=== PATIENT | female | born 1945 | race African-American/Black ===

== ENCOUNTER 2017-02-12 18:10 | Inpatient (IN) | payer OTHER ==
[~2017-02-12] VITALS: Ht 162.6 cm; Wt 54.5 kg
[~2017-02-12 18:10] MED LIST: AMLO10TA2 PO; CYCL5TAB PO; LISI40TA4 PO; LORA0.5T PO
--- NOTE | 2017-02-12 18:16 | NUR ---
PATIENT BIB [facility] D/T [facility]NC[facility]. PATIENT STATING SHE WAS SITTING WITH FRIEND AND "SHE PASSED OUT". A/OX 4. NO COMPLAINTS OF PAIN. MD AT BEDSIDE. WILL MONITOR UNTIL FURTHER ORDERS.
[2017-02-12] MEDS ORDERED: IV NS 0.9% 1,000 ML BAG IV ONE (18:30)
[2017-02-12] MEDS ORDERED: MECLIZINE HCL 25 MG TABLET PO ONE (18:30)
[2017-02-12] MEDS ORDERED: ONDANSETRON HCL/PF - ER 4 MG/2 ML VIAL IV ONE (18:30)
[2017-02-12 18:31] LABS: BASOPHILS # (AUTO) 0.1 /CMM (0.0-0.2); BASOPHILS % (AUTO) 0.8 % (0.0-2.0); EOSINOPHILS # (AUTO) 0.2 /CMM (0.0-0.7); EOSINOPHILS % (AUTO) 2.2 % (0.0-6.0); HEMATOCRIT 34 % (33-45); HEMOGLOBIN 11.5 g/dL (11.5-14.8); LYMPHOCYTES # (AUTO) 2.8 /CMM (0.8-4.8); LYMPHOCYTES % (AUTO) 38.4 % (20.0-44.0); MEAN CORPUSCULAR HEMOGLOBIN 30 PG (26.0-33.0); MEAN CORPUSCULAR HGB CONC 35 g/dl (31.0-36.0); MEAN CORPUSCULAR VOLUME 87 fL (82-100); MONOCYTES # (AUTO) 0.5 /CMM (0.1-1.30); MONOCYTES % (AUTO) 7.5 % (2.0-12.0); NEUTROPHILS # (AUTO) 3.7 /CMM (1.8-8.9); NEUTROPHILS % (AUTO) 51.1 % (43.0-81.0); PLATELET COUNT (AUTO) 333 /CMM (150-450); RDW COEFFICIENT OF VARIATION 12.9 (11.5-15.0); RED BLOOD CELL COUNT(AUTO) 3.86 MIL/uL (4.0-5.2); WHITE BLOOD COUNT (AUTO) 7.3 K/uL (4.3-11.0)
[2017-02-12] MEDS ORDERED: IV SET PRIMARY PUMP SET 1 EA INFUS.SET MC ONE ×2 (18:34→21:25)
[2017-02-12] MEDS ORDERED: ONDANSETRON HCL/PF 4 MG/2 ML VIAL ONE (18:34)
[2017-02-12] MEDS ORDERED: IV NS 0.9% 1,000 ML ONE (18:34)
[2017-02-12] MEDS ORDERED: MECLIZINE HCL 25 MG TABLET ONE (18:34)
--- NOTE | 2017-02-12 18:40 | NUR ---
patient medicated per MD orders.
[2017-02-12 18:47] LABS: CALCIUM, SERUM 8.5 mg/dL (8.5-10.1); CARBON DIOXIDE 28 mmol/L (21-32); CHLORIDE 105 mmol/L (98-107); CREATININE 1.2 mg/dL (0.6-1.3); GLUCOSE 135 mg/dL (74-106); POTASSIUM 3.5 mmol/L (3.5-5.1); SODIUM SERUM 137 mmol/L (136-145); UREA NITROGEN, BLOOD 22 mg/dL (7-18)
[2017-02-12 18:50] LABS: PROTHROMBIN TIME 10.4 SECS (9.5-12.7)
[2017-02-12 18:53] LABS: ALANINE AMINOTRANSFERASE 18 U/L (12-78); ALBUMIN 3.6 g/dL (3.4-5.0); ALKALINE PHOSPHATASE 67 U/L (46-116); ASPARTATE AMINOTRANSFERASE 19 U/L (15-37); BILIRUBIN,DIRECT 0.1 mg/dL (0.0-0.2); BILIRUBIN,TOTAL 0.4 mg/dL (0.2-1.0); TOTAL PROTEIN, SERUM 6.9 g/dL (6.4-8.2)
[2017-02-12 18:55] LABS: TROPONIN I < 0.017 ng/mL (0.00-0.056)
--- NOTE | 2017-02-12 19:09 | NUR ---
patient taken to ct scan. remains stable
--- NOTE | 2017-02-12 19:20 | NUR ---
REPORT REC'D FROM MAXWELL KIRKLAND FOR [facility].
--- NOTE | 2017-02-12 19:36 | NUR ---
BLOOD SUGAR CHECKED, READING 164
--- NOTE | 2017-02-12 19:37 | NUR ---
ORTHOSTATIC BP'S TAKEN. NO COMPLICATIONS NOTED.
--- NOTE | 2017-02-12 20:03 | NUR ---
PT'S FRIEND LEFT THE BEDSIDE AND CAN BE REACHED VIA CELL PHONE IF PT NEEDS TO BE PICKED UP.
--- NOTE | 2017-02-12 20:03 | NUR ---
PT TOLERATED PO WATER WELL.
--- NOTE | 2017-02-12 20:09 | NUR ---
CALLED [facility] CONFERENCE INTERPRETER DOCTOR WAS PAGED.
--- NOTE | 2017-02-12 20:25 | NUR ---
PT APPEARS TO BE RESTING COMFORTABLY VSS.
--- NOTE | 2017-02-12 20:48 | NUR ---
CALLED [facility] TUTOR DOCTOR WAS PAGED.
[2017-02-12 21:00] VITALS: BP 127/78
--- NOTE | 2017-02-12 21:00 | NUR ---
RN NOTES ADMITTED A 71 YEARS OLD, FEMALE PT FROM ER WITH PRIMARY DIAGNOSIS OF DIZZINESS UNDER DR AVILA. PT ALERT AND ORIENTED X4, DENIES CHEST PAIN, SOB AND ANY DISCOMFORT AT THIS TIME. VITAL SIGNS STABLE, AFEBRILE. ATTACHED TO TELE MONITOR WHICH READS SINUS RHYTHM WITH HEART RATE OF 68. SKIN AND BODY ASSESSMENT DONE, SKIN CLEAR AND INTACT. IV ACCESS ON LEFT FOREARM PATENT AND INTACT AND STARTED PT ON NS AT 75 MLS/HR. PT IS AMBULATORY WITH STEADY GAIT. KEPT COMFORTABLE AND ATTENDED. ALL ORDERS NOTED AND CARRIED OUT. WILL CONTINUE TO MONITOR PT.
[2017-02-12] MEDS ORDERED: IV NS 0.9% 1,000 ML IV PRN (21:09)
[2017-02-12] MEDS ORDERED: MAGNESIUM HYDROXIDE 30 ML UDC PO PRN (21:30)
[2017-02-12] MEDS ORDERED: ENOXAPARIN SODIUM 40 MG/0.4 ML DISP.SYRIN SQ SCH (21:30)
[2017-02-12] MEDS ORDERED: Z GUARD REMEDY 2 OZ OINT TP PRN (21:30)
[2017-02-12] MEDS ORDERED: ONDANSETRON HCL/PF 4 MG/2 ML VIAL IVP PRN (21:30)
[2017-02-12] MEDS ORDERED: MAG HYDROX/AL HYDROX/SIMETH 30 ML UDC PO PRN (21:30)
[2017-02-12] MEDS ORDERED: HYDROCODONE/APAP 5/325MG 1 EACH TABLET PO PRN (21:30)
[2017-02-12] MEDS ORDERED: ENOXAPARIN SODIUM 40 MG/0.4 ML DISP.SYRIN SQ ONE (21:54)
[2017-02-13] VITALS: BP 130/74
[2017-02-13 04:00] VITALS: BP_SYST 120; BP_DIAS 33; BP_DIAS 63
[2017-02-13] MEDS ORDERED: ACETAMINOPHEN 325 MG TABLET ONE (04:01)
[2017-02-13] MEDS: ACETAMINOPHEN 325 MG TABLET PO PRN ×2 (04:07→11:44)
--- NOTE | 2017-02-13 04:07 | NUR ---
RN NOTES PT COMPLAINS OF TOOTH ACHE, TYLENOL 650 MG TAB GIVEN PO AND TOLERATED WELL. WILL CONTINUE TO MONITOR.
--- NOTE | 2017-02-13 06:49 | NUR ---
RN NOTES PT AWAKE, NO SOB, NOT IN DISTRESS, ON ROOM AIR AND TOLERATED WELL. VITAL SIGNS STABLE, AFEBRILE. NO EPISODE OF NAUSEA AND VOMITING NOTED. KEPT PAIN AT TOLERABLE LEVEL . DENIES DIZZINESS AND ANY DISCOMFORT AT THIS TIME. ASSISTED TO THE BATHROOM, NOTED WITH STEADY GAIT. ALL DUE MEDS GIVEN. KEPT COMFORTABLE AND ATTENDED. WILL ENDORSE TO MORNING RN FOR CONTINUITY OF CARE.
[2017-02-13 07:07] LABS: BASOPHILS % (AUTO) 0.2 % (0.0-2.0); EOSINOPHILS # (AUTO) 0.2 /CMM (0.0-0.7); EOSINOPHILS % (AUTO) 2.4 % (0.0-6.0); HEMATOCRIT 32 % (33-45); HEMOGLOBIN 10.6 g/dL (11.5-14.8); LYMPHOCYTES # (AUTO) 2.5 /CMM (0.8-4.8); LYMPHOCYTES % (AUTO) 32.2 % (20.0-44.0); MEAN CORPUSCULAR HEMOGLOBIN 30 PG (26.0-33.0); MEAN CORPUSCULAR HGB CONC 34 g/dl (31.0-36.0); MEAN CORPUSCULAR VOLUME 88 fL (82-100); MONOCYTES # (AUTO) 0.7 /CMM (0.1-1.30); MONOCYTES % (AUTO) 8.5 % (2.0-12.0); NEUTROPHILS # (AUTO) 4.4 /CMM (1.8-8.9); NEUTROPHILS % (AUTO) 56.7 % (43.0-81.0); PLATELET COUNT (AUTO) 274 /CMM (150-450); RDW COEFFICIENT OF VARIATION 13.9 (11.5-15.0); RED BLOOD CELL COUNT(AUTO) 3.59 MIL/uL (4.0-5.2); WHITE BLOOD COUNT (AUTO) 7.8 K/uL (4.3-11.0)
[2017-02-13 07:13] VITALS: BP 122/65
[2017-02-13 07:26] LABS: CALCIUM, SERUM 8.7 mg/dL (8.5-10.1); CARBON DIOXIDE 28 mmol/L (21-32); CHLORIDE 107 mmol/L (98-107); CREATININE 0.8 mg/dL (0.6-1.3); GLUCOSE 76 mg/dL (74-106); MAGNESIUM 1.6 mg/dL (1.8-2.4); PHOSPHORUS 3.7 mg/dL (2.5-4.9); POTASSIUM 3.9 mmol/L (3.5-5.1); SODIUM SERUM 141 mmol/L (136-145); UREA NITROGEN, BLOOD 14 mg/dL (7-18)
[2017-02-13] MEDS ORDERED: PANTOPRAZOLE 40 MG TABLET.DR PO SCH (07:30)
--- NOTE | 2017-02-13 07:50 | NUR ---
RN OPEN NOTES RECEIVED REPORT FROM CELL OPERATION SUPERVISOR NURSE. PATIENT IS ALERT AND ORIENTED TO NAME, PLACE AND TIME. NO SIGNS AND SYMPTOMS OF DISTRESS. UPPER GUM PAIN LEVEL 3/10 DUE TO DENTAL SURGERY ON 02/12. BED IN LOW POSITION, LOCKED AND 2 SIDE RAILS ARE UP. WILL CONTINUE TO ASSESS PATIENT THROUGH OUT MY SHIFT
[2017-02-13 08:00] VITALS: BP 120/63
[2017-02-13] MEDS ORDERED: SECONDARY IV SET 1 EA INFUS.SET MC ONE (08:58)
[2017-02-13] MEDS ORDERED: ASPIRIN 81 MG TAB.CHEW PO SCH (09:00)
[2017-02-13] MEDS: LORAZEPAM 0.5 MG TABLET PO SCH ×3 (09:06→16:36)
[2017-02-13] MEDS: Magnesium 1GM/D5W 100ML PREMIX 100 ML IV SCH ×4 (09:11→12:41)
[2017-02-13 09:49] VITALS: BP_SYST 111; BP_SYST 123; BP_SYST 133; BP_DIAS 53; BP_DIAS 74; BP_DIAS 82
--- NOTE | 2017-02-13 09:50 | NUR ---
ORTHOSTATIC BLOOD PRESSURE COMPLETED. DR GALLAGHER NOTIFIED
[2017-02-13 12:03] LABS: APPEARANCE,URINE CLEAR (CLEAR); BILIRUBIN,URINE NEGATIVE (NEGATIVE); BLOOD, URINE NEGATIVE Ery/uL (NEGATIVE); COLOR,URINE YELLOW (YELLOW); KETONES,URINE NEGATIVE (NEGATIVE); LEUKOCYTE ESTERASE ,URINE NEGATIVE (NEGATIVE); NITRITE, URINE NEGATIVE (NEGATIVE); PH,URINE 5.5 (5.0-8.0); PROTEIN,URINE NEGATIVE (NEGATIVE); UGLUCOSE NEGATIVE (NEGATIVE); UROBILINOGEN,URINE 0.2 EU/dL (0.2)
[2017-02-13] MEDS ORDERED: AMOXICILLIN TRIHYDRATE 250 MG CAPSULE PO SCH (13:00)
[2017-02-13 16:00] VITALS: BP 124/65
--- NOTE | 2017-02-13 18:08 | NUR ---
HOSPITAL ORDERLY NOTES PATIENT DISCHARGE ORDERS RECEIVED AND CARRIED OUT. PATIENT DISCHARGED INSTRUCTION EXPLAINED TO PATIENT AND PATIENT VERBALIZED UNDERSTANDING. NO NEW CONCERNS VERBALIZE BY PATIENT. PATIENT IS BEING DISCHARGE IS A STABLE CONDITION. VITAL SIGNS ARE STABLE. NO SIGNS AND SYMPTOMS OF DISTRESS. DENIED PAIN. ALL PERSONAL BELONGING WITH PATIENT AT TIME OF DISCHARGE. BELONGING FORM SIGNED AND PLACED IN THE CHART. SKIN IS INTACT, NO NEED FOR PICTURE. IV SITE REMOVED. ID BAND REMOVED. PATIENT WAS TRANSPORTED HOME WITH A FRIEND, MISS Titi Mooney ESCORTED PATIENT TO MAIN LOBBY.
[2017-02-13] MEDS ORDERED: ATORVASTATIN 10 MG TABLET PO SCH (22:00)
== END 2017-02-13 18:00 | disposition home or self-care (01) | DRG 684 ==
LOC: ER 18:11 → TELE 20:40 → MED 02-13 11:50
PROVIDERS: ADMIT Internal Medicine; ATTEND Internal Medicine
DX: N17.0 Acute kidney failure with tubular necrosis (principal); Z86.73 Personal history of transient ischemic attack (TIA), and cerebral infarction without residual deficits; F41.9 Anxiety disorder, unspecified; I10 Essential (primary) hypertension; K21.9 Gastro-esophageal reflux disease without esophagitis; M79.7 Fibromyalgia; Z79.899 Other long term (current) drug therapy; E86.0 Dehydration; I95.9 Hypotension, unspecified; F12.90 Cannabis use, unspecified, uncomplicated; G90.1 Familial dysautonomia [Riley-Day]
CPT/HCPCS: 36415; 70450-TC; 71010-TC; 80048-TC; 80076-TC; 80305; 81000-TC; 82962-TC; 83735-TC; 84100-TC; 84484-TC; 85025-TC; 85730-TC; 87081-TC; 93307-TC; 97001-TC; J1650; J2405; J3475; J7030; J8597